=== PATIENT | male | born 1990 | race Caucasian/White ===

== ENCOUNTER 2018-07-03 13:49 | Emergency (ER) | payer BC ==
[2018-07-03 13:57] VITALS: BP 169/95
--- NOTE | 2018-07-03 14:35 | EDPHY ---
HPI/HX/ROS/PE/MDM Narrative: CLINICAL IMPRESSION: Left distal clavicle fracture ASSESSMENT/PLAN: Patient is a 27 year old male with a history of chronic low back pain who presents with complaint of left shoulder pain after sustaining a fall while snow -boarding. Patient is nontoxic-appearing, he is in no acute distress on arrival. Shoulder x-ray reveals comminuted, displaced left distal clavicle fracture. There was no evidence of open fracture, dislocation, compartment syndrome or neurovascular compromise. His history and physical examination is most consistent with left distal clavicle fracture. The patient was placed in a sling, CMS intact. He was given norco and ibuprofen with improvement of his pain. He was given an Ortho referral and will call to schedule a follow-up appointment. Return precautions discussed-patient to return to the emergency Department for significantly worsening or uncontrolled pain, significant swelling, numbness or tingling of the extremity, paleness or coolness of digits , fever or for any other concerning symptom. The patient verbalizes understanding and he is in agreement with this plan. Case results and plan of care discussed with Dr. Ayala DIFFERENTIAL DX: Differential includes dislocation, open fracture, fracture, compartment syndrome and neurovascular compromise ED COURSE: 1456: Case discussed with and x-ray reviewed with Dr. Ayala. CHIEF COMPLAINT: Left clavicle pain and deformity HPI: Patient is a 27-year-old male with no significant medical history who presents to the emergency department complaining of left shoulder pain and deformity after sustaining a fall while snowboarding. Patient reports he fell snowboarding causing him to land onto his right shoulder, he felt a pop and immediately felt to deformity along his left collarbone. He reports limited range of motion secondary to discomfort, denies any numbness or tingling of the arm or digits. Patient was able to snowboard [place] the rest of the [place] without difficulty, was evaluated up at [place] and sent here for further evaluation. Patient was wearing a helmet, he did not hit his head and there was no loss of consciousness. He denies any neck or back pain. He denies any chest wall pain, shortness of breath or abdominal pain. Patient denies saddle paresthesias, lower extremity numbness, tingling, major motor weakness, urinary retention or bowel/bladder incontinence. PAST MEDICAL HISTORY: Denies Pertinent Past Surgical History: Denies Family History: Noncontributory Social History: Occasional marijuana, occasional alcohol, denies cigarette smoking ROS: A full 10 point review of systems was negative except for those mentioned in HPI. PHYSICAL EXAM: General Appearance: Well developed, uncomfortable appearing however not toxic appearing. HEENT: TMs are clear bilaterally no perforation or FB, no injection, no evidence of serous or mucopurulent otitis. Oropharynx clear is no erythema or exudates, no tonsillar hypertrophy or asymmetry. Dentition without abnormality. Eyes: PERRLA, no acute vision change, nystagmus, swelling, discharge, pain or photosensitivity. Conjunctiva pink, no pallor or injection. Upper Extremities: Left distal clavicle tenderness with deformity. No overlying edema or ecchymosis. No proximal humerus tenderness to palpation. Upper arm compartment is soft. Limited ROM to flexion/extension/abduction/adduction, pain elicited with all movement. 2+ radial pulses with capillary refill < 2 seconds. 5/5 strength at fingers, wrist, elbow. Resisted wrist extension (radial nerve): normal. Resisted thumb opposition ( median nerve): normal. Resisted finger abduction (ulnar nerve): normal. Sensation intact throughout. Neck: FROM intact to flexion/extension/rotational movement. No midline tenderness. No step-off or deformity. Back: No step-off, palpable bony abnormality, edema, erythema or ecchymosis of the cervical, thoracic or lumbar spines. Thoracic and lumbar spines with no midline or paraspinal muscle tenderness to palpation. Full range of motion of all spines. 5/5 and equal strength of the UEs and LEs bilaterally including shoulder shrug ( except right shoulder as mentioned above). Pulses: 2+ and equal radial, DP and PT pulses bilaterally. Sensation intact and symmetric to light touch from face, UEs and LEs bilaterally. Respiratory: There are no retractions, lungs are clear to auscultation. No chest wall tenderness to palpation. Cardiac: Regular rate and rhythm, no murmurs or gallops. Gastrointestinal: Abdomen is soft, nontender, bowel sounds normal, no masses/ hernia, no rigidity, guarding or focal peritoneal findings. Skin: Warm, dry, no rashes, no nodules on palpation. MEDICAL DECISION MAKING: Patient was seen independently. Secondary supervising physician at time of evaluation was Dr. Ayala. Diagnosis: Distal left clavicle fracture. New, requires workup Summary: See Assessment and Plan for summary of ED visit Clinical lab tests: Not applicable. Independent visualization of images, tracing, or specimens: Yes. Decision to obtain medical records or history from someone other than the patient: No Review / Summarize previous medical records: No Discussed patient with another provider: Yes, Dr. Ayala Patient Progress: Stable, discharged home. - Data Points Imaging Results: Imaging Impressions Shoulder X-Ray 07/03/18 13:57 Impression: Comminuted oblique distal left clavicle fracture with superior displacement of the proximal fragment. Medications Given: Discontinued Medications Hydrocodone Bitart/Acetaminophen (Enterprise 5/325) 1 tab PO EDNOW ONE Stop: 07/03/18 14:58 Last Admin: 07/03/18 15:11 Dose: 1 tab Ibuprofen (Motrin) 600 mg PO EDNOW ONE Stop: 07/03/18 14:41 Last Admin: 07/03/18 14:49 Dose: 600 mg General Initial Vital Signs: Initial Vital Signs Temperature (C) 36.8 C 07/03/18 13:54 Heart Rate 102 H 07/03/18 13:54 Respiratory Rate 16 07/03/18 13:54 Blood Pressure 169/95 H 07/03/18 13:54 O2 Sat (%) 93 07/03/18 13:54 O2 Delivery Mode Room Air Allergies/Adverse Reactions: No Known Allergies Allergy (Unverified 07/03/18 13:54) Home Medications: Medication Instructions Recorded Escitalopram Oxalate 07/03/18 Hydrocodone/APAP 5/325 [Enterprise 1 each PO Q6 PRN #10 tab 07/03/18 5/325 (*)] Departure - Departure Disposition: Home, Routine, Self-Care Clinical Impression: Closed fracture of distal clavicle Condition: Good Instructions: Clavicle Fracture (ED) Additional Instructions: DISCHARGE INSTRUCTIONS FROM YOUR DOCTOR Thank you for visiting our emergency department today. Please keep in mind that discharge from the emergency department does not mean that there is nothing wrong - it simply means that we have not identified an emergency condition that requires further evaluation or treatment in the hospital. You should always plan to follow up with primary care for re-evaluation of your condition in the next 2-3 days. If you have been referred to a specialist, please call as soon as possible ( today or tomorrow) to schedule your follow up appointment at the appropriate time. Orthopedic surgery. Rest, no heavy lifting, pushing, pulling, carrying with the affected arm. Apply ice on and off to the painful area. Wear the sling as applied until follow-up. Avoid prolonged immobilization as we discussed as shoulder injuries are prone to "frozen shoulder" which is a significant complication and requires intensive physical therapy to rehabilitate. Ibuprofen 600 mg every 8 hours with food as needed for pain. Stop if this upsets your stomach. Do not exceed 2400 mg in 24 hours. It should only be used short term and not combined with other prescription or over the counter NSAIDs ( anti-inflammatories). Enterprise as prescribed as needed for severe pain. Caution -this may cause dizziness and/or drowsiness. Do not combine with tylenol, alcohol, driving or operating heavy machinery. Be careful as this can be addictive. Be careful as this can cause constipation. The emergency department cannot refill this medication. Continue your regular medication as prescribed. Call and schedule with a primary care provider for a follow-up appointment and to establish care for your primary care needs. Return for increased or unmanageable pain, inability to move the shoulder or neck, fever, chills, redness, warmth, swelling, numbness, tingling or weakness of the arm, loss of metal fabricating inspector strength, coolness of the fingertips, chest pain, shortness of breath, or for any other new, worsening or worrisome symptoms. People present with illnesses and injuries in different ways, and it is always possible that we have missed something. You may always return for re-evaluation if symptoms worsen or if they are not improving or if you develop new/different symptoms. Again, thank you for choosing our emergency department. We hope that you feel better. Referrals: Jillian Sue MD [Medical Doctor] - As per Instructions Candelario Iyer MD [Medical Doctor] - 2-3 days, call for appt. Prescriptions: Hydrocodone/APAP 5/325 [Enterprise 5/325 (*)] 1 each PO Q6 PRN #10 tab PRN Reason: Pain, Severe
[2018-07-03] MEDS ORDERED: IBUPROFEN 600 MG TAB PO ONE (14:40)
[2018-07-03] MEDS ORDERED: HYDROCODONE/APAP 5/325 TAB PO ONE (14:57)
== END 2018-07-03 15:51 | disposition home or self-care (01) ==
LOC: MERGE 13:49
DX: S42.002A Fracture of unspecified part of left clavicle, initial encounter for closed fracture (principal); V00.311A Fall from snowboard, initial encounter; Y93.23 Activity, snow (alpine) (downhill) skiing, snowboarding, sledding, tobogganing and snow tubing; Y92.89 Other specified places as the place of occurrence of the external cause; Y99.9 Unspecified external cause status

== ENCOUNTER → 2018-07-06 | Outpatient (CLI) | payer BC | LOC: BMCIMAGING 10:09 | PROVIDERS: ATTEND Orthopaedic Surgery Hand Surgery | DX: S42.015A Posterior displaced fracture of sternal end of left clavicle, initial encounter for closed fracture (principal) ==

== ENCOUNTER 2018-07-10 15:08 | Day surgery (SDC) | payer BC, OTHER ==
[2018-07-10] MEDS ORDERED: ceFAZolin 2 GM/DEXTROSE 100 ML IV ONE (15:18)
[2018-07-10] MEDS ORDERED: LIDOCAINE 1% 2 ML INJ ID PRN (15:23)
[2018-07-10] MEDS ORDERED: LR 1,000 ML IV ONE (15:23)
[2018-07-10] MEDS ORDERED: BUPIVACAINE/EPI 0.5% 30 ML SDV ONE (16:04)
[2018-07-10] MEDS ORDERED: fentaNYL 100 MCG/2 ML INJ ONE (16:22)
[2018-07-10] MEDS ORDERED: MIDAZOLAM 2 MG/2 ML VIAL IVP ONE (16:25)
[2018-07-10] MEDS ORDERED: fentaNYL 100 MCG/2 ML INJ IVP ONE (16:25)
--- NOTE | 2018-07-10 16:26 | PDANEPAE ---
ANE Past Medical History - Cardiovascular History Hx Hypertension: No Hx Arrhythmias: No Hx Chest Pain: No Hx Coronary Artery / Peripheral Vascular Disease: No Hx CHF / Valvular Disease: No Hx Palpitations: No Cardiovascular History Comment: HEART MURMUR - Pulmonary History Hx COPD: No Hx Asthma/Reactive Airway Disease: No Hx Recent Upper Respiratory Infection: No Hx Oxygen in Use at Home: No Hx Sleep Apnea: No Sleep Apnea Screening Result - Last Documented: Negative - Neurologic History Hx Cerebrovascular Accident: No Hx Seizures: No Hx Dementia: No - Endocrine History Hx Diabetes: No - Renal History Hx Renal Disorders: No - Liver History Hx Hepatic Disorders: No - Neurological & Psychiatric Hx Hx Neurological and Psychiatric Disorders: Yes Neurological / Psychiatric History Comment: ANXIETY - Cancer History Hx Cancer: No - Congenital Disorder History Hx Congenital Disorders: No - GI History Hx Gastrointestinal Disorders: No - Other Health History Other Health History: 06/2018 INJURED LT CLAVICLE SNOW BOARDING - Chronic Pain History Chronic Pain: No - Surgical History Prior Surgeries: 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 ANE Review of Systems Review of Systems: - Exercise capacity METS (RN): 6 METS ANE Patient History - Allergies Allergies/Adverse Reactions: No Known Allergies Allergy (Unverified 03/08/14 12:33) - Home Medications Home Medications: Advil DAILY 07/09/18 [Last Taken 07/09/18 08:00] Escitalopram Oxalate DAILY 07/09/18 [Last Taken 07/09/18] Herbals/Supplements -Info Only DAILY 07/09/18 [Last Taken 07/09/18] Melrose 5-325 Tablet PRN 07/09/18 [Last Taken 07/10/18 00:00] - NPO status NPO Since - Liquids (Date): 07/10/18 NPO Since - Liquids (Time): 14:00 NPO Since - Solids (Date): 07/09/18 NPO Since - Solids (Time): 22:00 - Smoking Hx Smoking Status: Never smoked ANE Labs/Vital Signs - Vital Signs Blood Pressure: 138/91 Heart Rate: 95 Respiratory Rate: 21 O2 Sat (%): 93 Height: 182.88 cm Weight: 108.862 kg ANE Physical Exam - Airway Neck exam: FROM Mallampati Score: Class 2 - Pulmonary Pulmonary: no respiratory distress - Cardiovascular Cardiovascular: regular rate and rhythym - ASA Status ASA Status: II ANE Anesthesia Plan Anesthesia Plan: GA w LMA
[2018-07-10] MEDS ORDERED: fentaNYL 250 MCG/5 ML INJ ONE ×2 (16:31→17:54)
[2018-07-10] MEDS ORDERED: LIDOCAINE 2% 100 MG/5 ML SYR ONE (16:32)
[2018-07-10] MEDS ORDERED: DEXAMETHASONE 4 MG/ML VIAL ONE ×2 (16:32)
[2018-07-10] MEDS ORDERED: PROPOFOL 200 MG/20 ML VIAL ONE (16:32)
[2018-07-10] MEDS ORDERED: RANITIDINE 50 MG/2 ML VIAL ONE (16:32)
[2018-07-10] MEDS ORDERED: KETOROLAC 30 MG/1 ML SDV ONE (16:43)
--- NOTE | 2018-07-10 16:48 | PDHPUP ---
History & Physical Update H&P update statement: This history and physical update is based on an assessment of the patient which was completed after admission or registration (within 24 hours), but prior to the surgery/procedure. H&P update: H&P reviewed & patient examined, no change in patient's condition since H&P completed
[2018-07-10] MEDS ORDERED: NALOXONE HCL 0.4 MG/ML INJ IVP PRN (19:24)
[2018-07-10] MEDS ORDERED: fentaNYL 100 MCG/2 ML INJ IVP PRN (19:24)
[2018-07-10] MEDS ORDERED: HYDROmorphONE/DILAUDID 2 MG/ML INJ IVP PRN (19:24)
[2018-07-10] MEDS ORDERED: ALBUTEROL 3 ML DEYVIAL IH PRN (19:24)
[2018-07-10] MEDS ORDERED: HYDROCODONE/APAP 5/325 TAB PO PRN (19:24)
[2018-07-10] MEDS ORDERED: ONDANSETRON 4 MG/2 ML VIAL IVP PRN (19:24)
--- NOTE | 2018-07-10 19:52 | POSTANESTH ---
Post Anesthetic Evaluation Cardiovascular Status: Similar to Pre-Op Cond Respiratory Status: Similar to Pre-op Cond. Level of Consciousness/Mental Status: Mildly Sleepy, Arousable Pain Control: Adequate, Prn Tx Ordered Nausea/Vomiting Control: Adequate, Prn Tx Ordered Complications Possibly Related to Anesthesia: None Noted
[2018-07-10] MEDS ORDERED: ONDANSETRON 4 MG/2 ML VIAL ONE (20:03)
[2018-07-10] MEDS ORDERED: HYDROCODONE/APAP 5/325 TAB ONE (20:08)
[2018-07-10 20:31] VITALS: BP 149/93
--- NOTE | 2018-07-13 19:33 | GOP ---
DATE OF OPERATION: 07/10/2018 SURGEON: Conor Ascencio MD ANESTHESIA: General. PREOPERATIVE DIAGNOSIS: Displaced left distal clavicle fracture. POSTOPERATIVE DIAGNOSIS: Displaced left distal clavicle fracture. PROCEDURE PERFORMED: Open reduction, internal fixation of left distal clavicle fracture. FINDINGS: ESTIMATED BLOOD LOSS: 20 cc. INDICATIONS: The patient injured his shoulder about a week prior to the surgery. He fell snowboardi . He was seen by me in clinic. I reviewed the x-rays taken on the day of injury with him. I also took new x-rays that day to better visualize the fracture pattern. He had a distal clavicle fracture with about a centimeter superior displacement. The lateral fragment was quite small. The superior displacement indicated that the cc ligaments were probably torn. This fracture pattern has the risk of further displacement due to the loss of the cc ligaments, high risk of nonunion. Open reduction, internal fixation indicated. Discussed options with him, both operative and nonoperative. Discussed risks of surgery, risks of pain, bleeding, infection, damage to surrounding structures, need for fur ther operations, delayed union, nonunion, prominent hardware, stiffness, weakness. He understood the se risks and wished to proceed. Of note, initially the patient notified me that he has insurance that only allows him to have procedu res done in [place], and given my recommendations and he stated he would find a surgeon in [place]. However, after further discussion with his mother and the patient himself, they wished to stay with me and have the surgery done in [place], and he does agree. DESCRIPTION OF PROCEDURE: The patient was seen in the preoperative holding area, and given the oppor tunity to ask any more questions. All his questions were answered. Consent was signed. Site was damari hoang. He was then transferred to the operative suite. Care was taken to transfer him carefully from the [facility] to the operating room table. Care was taken to pad all bony prominences on the table. Stevie e was placed in the beach chair position. Great care was taken to ensure that all bony prominences w ere padded, and his head was secured and well padded, and that his eyes were protected. Time-out was called including surgical and anesthesia teams confirming the surgical site and the procedure to be performed. General anesthesia was induced by the anesthesia team. 2 g of Ancef were given prior to incision. The left upper extremity was prepped and draped in the usual sterile fashion for a clavicl e ORIF. I then marked out a longitudinal incision over the distal clavicle, carefully dissected down through the skin to the deltotrapezial fascia which I then split along with the periosteum along the clavicle lifting thick flaps. I then visualized the distal fragment. Again, this was a quite small fragment . I released the medial aspect of the clavicle. It was superiorly and posteriorly displaced over 10 0%. I then performed a provisional reduction with bone reduction clamps. I chose the plate, positio sam it over the bone and then performed provisional reduction with some K-wires. This held it in issa ce nicely. I then placed a cortical screw medially to hold the plate down to the bone, and again I r educed the distal fragment to the plate and the medial fragment. When I was happy with the reduction, I then drilled for the coracoid button using their drill, and drilled to 4 cortices through the clav icle and then bicortically through the coracoid base. This was done under fluoroscopic guidance. Wh jenny I was all the way through it, then passed the peg button through the tunnel, and then flipped the button. At this point, I then tightened the button over the plate, which helped with the reduction i mmensely. Then, I pulled the sutures off to the side and finished the ORIF by placing the distal loc marge screws in the locking cluster. I placed 1 more medial cortical screw and then a locking screw a t the end. I then backed up the coracoid fixation several half hitches. I closed the deltotrapezial fascia over the plate, and closed the wound in layers with 4-0 Monocryl s ubcuticular. Sterile dressing was applied. Steri-Strips were applied. He tolerated procedure well, was placed in a sling, and was taken back in stable condition. IMPLANTS USED: Arthrex distal clavicle plating system with coracoid button. POSTOPERATIVE CONDITION: Stable. POSTOPERATIVE PLAN: The patient will follow up with me in 10-14 days. I will follow him stanley suarez for healing. /[id number]/MODL
== END 2018-07-10 20:55 | disposition home or self-care (01) ==
LOC: FSGY 15:08
PROVIDERS: ATTEND Orthopaedic Surgery Hand Surgery
PROC: 0PHB04Z Insertion of Internal Fixation Device into Left Clavicle, Open Approach (ICD-10-PCS; principal; 2018-07-10 16:30)
DX: S42.032A Displaced fracture of lateral end of left clavicle, initial encounter for closed fracture (principal); V00.311A Fall from snowboard, initial encounter; Y93.23 Activity, snow (alpine) (downhill) skiing, snowboarding, sledding, tobogganing and snow tubing; Y92.9 Unspecified place or not applicable; Y99.9 Unspecified external cause status
CPT/HCPCS: C1713; J0690; J1100; J1885; J2001; J2250; J2405; J2704; J2780; J3010

== ENCOUNTER → 2018-07-24 | Outpatient (CLI) | payer BC | LOC: BMCIMAGING 12:51 | PROVIDERS: ATTEND Physician Assistant | DX: Z09 Encounter for follow-up examination after completed treatment for conditions other than malignant neoplasm (principal) ==